=== PATIENT | male | born 1980 | race Caucasian/White ===

== ENCOUNTER 2021-09-20 03:29 | Inpatient (IN) | payer BC, OTHER ==
[~2021-09-20] VITALS: Ht 170.2 cm; Wt 123.4 kg
[2021-09-20 04:20] LABS: BASOPHILS % 0.7 % (0.0-2.0); EOSINOPHILS % 2.4 % (0.0-5.0); HEMATOCRIT. 47.1 % (42.0-52.0); HEMOGLOBIN. 16.5 g/dL (14.0-18.0); LYMPHOCYTES % 34.4 % (20.0-50.0); MEAN CORPUSCULAR HEMOGLOBIN 29.5 pg (28.0-32.0); MEAN CORPUSCULAR VOLUME 84.4 fL (80.0-94.0); MEAN PLATELET VOLUME 9.5 fl (7.4-10.4); MONOCYTES % 7.9 % (2.0-8.0); NEUTROPHILS % 54.6 % (40.0-76.0); PLATELET 171 x1000/uL (130-400); RED BLOOD CELL COUNT 5.58 mill/uL (4.7-6.1); RED CELL DISTRIBUTION WIDTH 13.5 % (11.6-14.6)
[2021-09-20 04:26] LABS: CHLORIDE 103 mEq/L (98-107)
[2021-09-20 04:31] LABS: ETHANOL BLOOD < 10 mg/dL
[2021-09-20] MEDS ORDERED: ASPIRIN 325MG EC TABLET PO ONE (05:15)
[2021-09-20 06:04] LABS: CLARITY URINE CLEAR (CLEAR); COLOR URINE YELLOW (YELLOW); KETONES URINE NEGATIVE (NEGATIVE); LEUKOCYTE ESTERASE URINE NEGATIVE (NEGATIVE); NITRITE URINE NEGATIVE (NEGATIVE); OCCULT BLOOD URINE NEGATIVE (NEGATIVE); PH URINE 7.5 (4.5-8.0); PROTEIN URINE NEGATIVE (NEGATIVE); SPECIFIC GRAVITY URINE 1.041 (1.005-1.030); UROBILINOGEN URINE 0.2 E.U./dL (0.2-1.0)
[2021-09-20 06:13] LABS: METHADONE URINE SCREEN NEGATIVE (NEGATIVE); OPIATES URINE SCREEN NEGATIVE (NEGATIVE); PHENCYCLIDINE URINE SCREEN NEGATIVE (NEGATIVE)
[2021-09-20 06:14] LABS: *AMPHETAMINES SCREEN URINE NEGATIVE (NEGATIVE); *BARBITURATES SCREEN URINE NEGATIVE (NEGATIVE); *BENZODIAZEPINES SCREEN URINE NEGATIVE (NEGATIVE); *COCAINE SCREEN URINE NEGATIVE (NEGATIVE); CANNABINOID URINE SCREEN NEGATIVE (NEGATIVE)
[2021-09-20] MEDS ORDERED: IOHEXOL-350 100 ML BOTTLE ONE (06:21)
[2021-09-20] MEDS ORDERED: KETOROLAC 15MG/ML VIAL IV PRN (07:30)
[2021-09-20] MEDS ORDERED: ACETAMINOPHEN 325MG TABLET PO PRN ×2 (07:30)
[2021-09-20] MEDS ORDERED: MAGNESIUM/ALUMINUM HYDROXIDE/SIMETHICONE 30ML UDC PO PRN (07:30)
[2021-09-20] MEDS ORDERED: IPRATROPIUM/ALBUTEROL 0.5-3(2.5)MG/3ML NEB NEB PRN (07:30)
[2021-09-20] MEDS ORDERED: NITROGLYCERIN 0.4MG TABLET SL SL PRN (07:30)
[2021-09-20] MEDS ORDERED: ONDANSETRON HCL 4MG/2ML INJ IV PRN (07:30)
[2021-09-20] MEDS ORDERED: GUAIFENESIN 200MG/10ML SUGAR FREE UDC PO PRN (07:30)
[2021-09-20] MEDS ORDERED: ENOXAPARIN 40MG/0.4ML SYR SUBCUT SCH (07:30)
[2021-09-20 07:47] LABS: T4 FREE 1.03 ng/dL (0.76-1.46)
[2021-09-20 08:05] LABS: FOLIC ACID (FOLATE) SERUM 9.2 ng/mL (>5.38)
[2021-09-20] MEDS ORDERED: DOCUSATE SODIUM 100MG CAPSULE PO PRN (09:00)
[2021-09-20] MEDS: ENOXAPARIN 30MG/0.3ML SYR SUBCUT SCH ×2 (09:23→21:48)
[2021-09-20] MEDS: ASPIRIN 325MG EC TABLET PO SCH (09:24)
[2021-09-20] MEDS: FAMOTIDINE 20MG TABLET PO SCH ×2 (09:24→21:47)
[2021-09-20 10:00] VITALS: BP 139/82
[2021-09-20 10:18] VITALS: BP 139/82
[2021-09-20 12:00] VITALS: BP 134/94
[2021-09-20] MEDS ORDERED: GADOTERATE MEGLUMINE 5 MMOL/10 ML VIAL IV ONE (12:12)
[2021-09-20 14:50] VITALS: BP 122/82
[2021-09-20 16:00] VITALS: BP 139/87
[2021-09-20 16:00] LABS: CREATINE KINASE 561 IU/L (39-308)
[2021-09-20 16:01] LABS: CREATINE KINASE MB FRACTION 6.3 ng/mL (0.5-3.6)
[2021-09-20 20:00] VITALS: BP 137/89
[2021-09-20] MEDS ORDERED: ZOLPIDEM TARTRATE 5MG TABLET PO PRN (21:00)
[2021-09-21] VITALS (8 sets, daily range): BP systolic 113–157; BP diastolic 62–103
[2021-09-21 00:04] LABS: CREATINE KINASE 451 IU/L (39-308)
[2021-09-21 00:05] LABS: CREATINE KINASE MB FRACTION 4.8 ng/mL (0.5-3.6)
[2021-09-21 08:14] LABS: CHLORIDE 107 mEq/L (98-107)
[2021-09-21 08:16] LABS: BASOPHILS % 0.9 % (0.0-2.0); EOSINOPHILS % 3.2 % (0.0-5.0); HEMATOCRIT. 46.5 % (42.0-52.0); HEMOGLOBIN. 16.3 g/dL (14.0-18.0); LYMPHOCYTES % 28.5 % (20.0-50.0); MEAN CORPUSCULAR HEMOGLOBIN 29.4 pg (28.0-32.0); MEAN CORPUSCULAR VOLUME 83.7 fL (80.0-94.0); MEAN PLATELET VOLUME 9.7 fl (7.4-10.4); MONOCYTES % 7.5 % (2.0-8.0); NEUTROPHILS % 59.9 % (40.0-76.0); PLATELET 152 x1000/uL (130-400); RED BLOOD CELL COUNT 5.56 mill/uL (4.7-6.1); RED CELL DISTRIBUTION WIDTH 13.7 % (11.6-14.6)
[2021-09-21 08:20] LABS: PHOSPHORUS 2.5 mg/dL (2.5-4.9)
[2021-09-21] MEDS: ASPIRIN 325MG EC TABLET PO SCH (08:46)
[2021-09-21] MEDS: FAMOTIDINE 20MG TABLET PO SCH ×2 (08:46→20:54)
[2021-09-21] MEDS: ENOXAPARIN 30MG/0.3ML SYR SUBCUT SCH ×2 (08:47→20:54)
[2021-09-21] MEDS: CLONIDINE 0.1MG TABLET PO PRN ×2 (15:05→20:54)
[2021-09-22 04:00] VITALS: BP 135/87
[2021-09-22 08:00] VITALS: BP 130/88
[2021-09-22] MEDS: ASPIRIN 325MG EC TABLET PO SCH (09:27)
[2021-09-22] MEDS: FAMOTIDINE 20MG TABLET PO SCH (09:27)
[2021-09-22] MEDS: ENOXAPARIN 30MG/0.3ML SYR SUBCUT SCH (09:28)
[2021-09-22 12:00] VITALS: BP 121/71
[2021-09-22 16:00] VITALS: BP 143/81
[2021-09-22] MEDS ORDERED: ATORVASTATIN CALCIUM 10MG TABLET PO SCH (21:00)
== END 2021-09-22 19:24 | disposition left against medical advice (07) | DRG 69 ==
LOC: ER 03:29 → 6WST 04:59 → EDBEDREQSVC 05:03 → EDBEDREQTM 05:03 → EDBEDREQ 05:03 → ENRESERV 08:33
PROVIDERS: ADMIT Internal Medicine; ATTEND Internal Medicine
PROC: 5A09357 Assistance with Respiratory Ventilation, Less than 24 Consecutive Hours, Continuous Positive Airway Pressure (ICD-10-PCS; principal; 2021-09-21)
DX: G45.9 Transient cerebral ischemic attack, unspecified (principal); Z68.41 Body mass index [BMI] 40.0-44.9, adult; E66.9 Obesity, unspecified; E78.00 Pure hypercholesterolemia, unspecified; G47.33 Obstructive sleep apnea (adult) (pediatric); E83.51 Hypocalcemia; Z82.3 Family history of stroke; Z87.891 Personal history of nicotine dependence
CPT/HCPCS: 36415; 70496; 70498; 70551; 70552; 71045; 80053; 80061; 80305; 80320; 81003; 82550; 82553; 82607; 82746; 83036; 83540; 83550; 83735; 84100; 84439; 84443; 84484; 85025; 93005; 93306; 93970; 99285; A9577; J1650; Q9967; G0480